=== PATIENT | female | born 1960 | race Caucasian/White ===

== ENCOUNTER 2018-06-27 11:46 | Inpatient (IN) | payer BC, OTHER ==
[~2018-06-27] VITALS: Ht 165.1 cm; Wt 77.4 kg
[2018-06-27] MEDS ORDERED: metroNIDAZOLE 500MG/100ML 100 ML IV ONE (13:45)
[2018-06-27] MEDS ORDERED: SODIUM CHLORIDE 0.9% 1,000 ML IV ONE (13:57)
[2018-06-27 14:38] LABS: Basophils # (auto) 0 uL; Eosinophils # (auto) 0 uL; Hematocrit 40.6 % (36.0-46.0); Hemoglobin 13.6 g/dL (12.2-16.2); Lymphocytes # (auto) 0.5 uL; Lymphocytes % (auto) 10.6 % (10.0-50.0); Mean Corpuscular Hemoglobin 29.6 pg (28.0-32.0); Mean Corpuscular Hgb Conc. 33.5 g/dL (32.0-36.0); Mean Corpuscular Volume 88.3 fL (80.0-100.0); Monocytes # (auto) 0.1 uL; Monocytes % (auto) 2.9 % (0.0-12.0); Neutrophils # (auto) 3.9 uL; Neutrophils % (auto) 86.5 % (37.0-80.0); Nucleated Red Blood Cells % 0.1 %; Platelet Count (auto) 180 10^3/uL (140-450); Red Blood Cells 4.59 10^6/uL (4.0-5.20); Red Cell Distribution Width 13.4 % (11.8-14.3); White Blood Cell 4.5 10^3/uL (4.4-10.8)
[2018-06-27 14:58] LABS: Albumin 3.7 g/dL (3.4-5.0); BUN/Creatinine Ratio 18.5; Calcium 9.7 mg/dL (8.5-10.1); Potassium 3.6 mmol/L (3.5-5.1)
[2018-06-27 15:01] LABS: Total Protein 7.5 g/dL (6.4-8.2)
[2018-06-27] MEDS ORDERED: PANTOPRAZOLE 40 MG/10 ML VIAL IV ONE (18:30)
[2018-06-27] MEDS ORDERED: MORPHINE SULFATE 4 MG/ML SYR/VIAL IV PRN ×3 (18:30)
[2018-06-27] MEDS ORDERED: LORazepam 2MG/ML-1ML VIAL IV PRN (18:30)
[2018-06-27] MEDS ORDERED: NITROGLYCERIN 0.4 MG SL TAB SL PRN (18:30)
[2018-06-27] MEDS ORDERED: IOHEXOL 300 MG/ML 100ML BOTTLE IJ ONE (18:47)
[2018-06-27 18:55] LABS: CRP High Sensitivity 0.06 mg/dL (< 0.3)
[2018-06-27] MEDS ORDERED: ENOXAPARIN SOD 40 MG/0.4 ML SYRINGE SC SCH (19:20)
[2018-06-27] MEDS: metroNIDAZOLE 500MG/100ML 100 ML IV SCH (19:20)
[2018-06-27] MEDS: SODIUM CHLORIDE 0.9% 1,000 ML IV SCH (19:30)
[2018-06-27 19:55] VITALS: BP_SYST 141; BP_DIAS 64; BP_DIAS 69
--- NOTE | 2018-06-27 19:55 | NUR ---
Telemetry admit from ER HENRY BRIGGS admitted to Telemetry unit after no SBAR received, attempt by ER staff noted. Patient oriented to BRANDON SOW, RN primary RN, unit, room, bed, and unit policies regarding patient care and visiting hours. Patient now on continuous telemetry monitoring, tele box # 21 and telemetry reading on arrival to unit is sinus rhythm at 84 beats per minute. Patient weighed by bedscale and encouraged to call if they need something. All questions and concerns addressed, patient verbalized understanding. Family at bedside on admission. Bed in lowest locked position, side rails up x2, call light within reach. Will continue to monitor every hour and as needed.
[2018-06-27 20:10] LABS: INR 0.93 (0.9-1.15); Partial Thromboplastin Time 24.7 sec (23.78-33.04)
[2018-06-27 20:51] LABS: Urine Bacteria NONE SEEN /hpf (None Seen); Urine Blood Negative /uL (Negative); Urine Mucus FEW (None Seen); Urine Specific Gravity 1.036 (1.001-1.035); Urine WBC 4 /hpf (0 - 5)
[2018-06-28] MEDS: metroNIDAZOLE 500MG/100ML 100 ML IV SCH ×4 (00:11→17:31)
[2018-06-28] MEDS: cefTRIAXone 1GM/50ML D5W 50 ML IV ONE ×2 (00:12→01:06)
[2018-06-28] MEDS: SODIUM CHLORIDE 0.9% 1,000 ML IV SCH ×3 (02:50→18:32)
[2018-06-28] MEDS ORDERED: OXYB5TAB24 PO (03:08)
[2018-06-28] MEDS ORDERED: LEVO150T10 PO (03:08)
[2018-06-28] MEDS ORDERED: PANT40TA2 PO (03:08)
[2018-06-28 05:01] VITALS: BP 107/66
[2018-06-28 06:07] LABS: Basophils # (auto) 0 uL; Basophils % (auto) 0.2 % (0.0-2.0); Eosinophils # (auto) 0 uL; Eosinophils % (auto) 0.3 % (0.0-7.0); Hematocrit 35.4 % (36.0-46.0); Hemoglobin 12.2 g/dL (12.2-16.2); Lymphocytes # (auto) 1.6 uL; Lymphocytes % (auto) 39.8 % (10.0-50.0); Mean Corpuscular Hemoglobin 30.4 pg (28.0-32.0); Mean Corpuscular Hgb Conc. 34.5 g/dL (32.0-36.0); Mean Corpuscular Volume 88.3 fL (80.0-100.0); Monocytes # (auto) 0.3 uL; Monocytes % (auto) 8.1 % (0.0-12.0); Neutrophils # (auto) 2.1 uL; Neutrophils % (auto) 51.6 % (37.0-80.0); Nucleated Red Blood Cells % 0.1 %; Platelet Count (auto) 157 10^3/uL (140-450); Red Blood Cells 4.01 10^6/uL (4.0-5.20); Red Cell Distribution Width 13.8 % (11.8-14.3); White Blood Cell 4.1 10^3/uL (4.4-10.8)
[2018-06-28 06:14] LABS: Amylase 35 U/L (25-115); Lipase 89 U/L (73-393)
[2018-06-28 06:17] LABS: Cholesterol 153 mg/dL (< 200); HDL Cholesterol 70 mg/dL (40-59); LDL Cholesterol 72 mg/dL (< 100); Triglycerides 58 mg/dL (< 150)
[2018-06-28 06:18] LABS: Potassium 3.5 mmol/L (3.5-5.1)
[2018-06-28 06:25] LABS: Albumin 3.2 g/dL (3.4-5.0); BUN/Creatinine Ratio 15.5; Bilirubin, Total 2.6 mg/dL (0.2-1.0); Calcium 8.7 mg/dL (8.5-10.1); Total Protein 6.1 g/dL (6.4-8.2)
--- NOTE | 2018-06-28 07:00 | NUR ---
Closing Note Patient sitting up in bed, awake and alert. No s/s of distress. Care endorsed to dayshift RN.
--- NOTE | 2018-06-28 08:30 | NUR ---
Opening Shift Note Assumed care of patient, awake and alert. No S/S of distress/SOB or pain. Instructed on POC and to call for assist PRN, will continue to monitor for changes Q1hr and PRN.
[2018-06-28] MEDS: cefTRIAXone 1GM/50ML D5W 50 ML IV SCH (09:26)
[2018-06-28] MEDS: PANTOPRAZOLE 40 MG/10 ML VIAL IV SCH (09:26)
[2018-06-28 09:36] VITALS: BP 118/60
[2018-06-28] MEDS ORDERED: POTASSIUM CHL 20 Meq TABLET PO ONE (11:30)
--- NOTE | 2018-06-28 11:30 | NUR ---
Dr. Mcintyre and Dr. Garcia at bedside discuss with patient, will do ERCP tomorrow morning and NPO AMN except medications.
[2018-06-28] MEDS ORDERED: hydrALAZINE HCL 25 MG TAB PO PRN (11:45)
[2018-06-28 13:00] VITALS: BP 127/76
[2018-06-28 17:53] VITALS: BP 130/71
--- NOTE | 2018-06-28 19:10 | NUR ---
Opening Note Received change of shift report from day shift RN. Patient is awake, alert and oriented x4. No signs or symptoms of distress noted at this time. Patient denies pain at this time. Reviewed plan of care with patient, patient verbalized understanding. Patient is to have ERCP tomorrow morning and is to be NPO after midnight. Bed in low and locked position, call light within reach. Will continue to monitor Q1 hour and PRN.
[2018-06-28 22:00] VITALS: BP 118/71
--- NOTE | 2018-06-29 00:28 | NUR ---
Patient complains of nausea Spoke with YASMANI Ponce. New orders received for PRN Zofran. Will administer per orders
[2018-06-29] MEDS ORDERED: ONDANSETRON HCL 4 MG/2 ML VIAL IV PRN (00:30)
[2018-06-29] MEDS: metroNIDAZOLE 500MG/100ML 100 ML IV SCH ×3 (00:48→11:19)
[2018-06-29] MEDS: SODIUM CHLORIDE 0.9% 1,000 ML IV SCH ×2 (02:44→10:30)
[2018-06-29 05:00] VITALS: BP 130/66
[2018-06-29 06:04] LABS: Basophils # (auto) 0 uL; Basophils % (auto) 0.3 % (0.0-2.0); Eosinophils # (auto) 0 uL; Eosinophils % (auto) 1.1 % (0.0-7.0); Hematocrit 34.7 % (36.0-46.0); Hemoglobin 11.8 g/dL (12.2-16.2); Lymphocytes # (auto) 1.3 uL; Lymphocytes % (auto) 49.8 % (10.0-50.0); Mean Corpuscular Hemoglobin 30.2 pg (28.0-32.0); Mean Corpuscular Hgb Conc. 34.1 g/dL (32.0-36.0); Mean Corpuscular Volume 88.5 fL (80.0-100.0); Monocytes # (auto) 0.2 uL; Monocytes % (auto) 8.8 % (0.0-12.0); Platelet Count (auto) 140 10^3/uL (140-450); Red Blood Cells 3.92 10^6/uL (4.0-5.20); Red Cell Distribution Width 13.5 % (11.8-14.3); White Blood Cell 2.6 10^3/uL (4.4-10.8)
[2018-06-29 06:20] LABS: Albumin 3.1 g/dL (3.4-5.0); BUN/Creatinine Ratio 12.5; Calcium 8.8 mg/dL (8.5-10.1); Potassium 4.1 mmol/L (3.5-5.1)
[2018-06-29 06:23] LABS: Bilirubin, Total 0.9 mg/dL (0.2-1.0); Total Protein 5.9 g/dL (6.4-8.2)
--- NOTE | 2018-06-29 07:15 | NUR ---
Closing Note Report given to day shift RN. Patient is awake, alert and oriented x4. No signs or symptoms of distress noted at this time.
--- NOTE | 2018-06-29 07:50 | NUR ---
Opening Shift Note Assumed care of patient, awake and alert, oriented x 4 and verbally responsive. Respiratory even and unlabored. No S/S of distress/SOB or pain. Skin is warm and dry to touch. Continue NPO, no s/s of hyperglycemia or hypoglycemia noted. Instructed on POC and to call for assist PRN, will continue to monitor for changes Q1hr and PRN.
--- NOTE | 2018-06-29 08:00 | NUR ---
Patient off unit to OR.
[2018-06-29] MEDS ORDERED: MIDAZOLAM HCL 1MG/1ML-2 ML VIAL ONE (08:46)
[2018-06-29] MEDS ORDERED: fentaNYL CITRATE 100 MCG/2 ML VL ONE (08:46)
[2018-06-29] MEDS ORDERED: MEPERIDINE HCL (50 MG/ML) 1 ML VIAL ONE (08:46)
[2018-06-29] MEDS ORDERED: SUCCINYLCHOLINE CHLORIDE 20 MG/ML 10ML VIAL IV ONE (08:51)
[2018-06-29 09:00] VITALS: BP 122/65
[2018-06-29] MEDS ORDERED: DEXAMETHASONE SOD PHOS 10MG/1ML VIAL INJ ONE (09:16)
[2018-06-29] MEDS ORDERED: PROPOFOL 10 MG/ML 20 ML IV ONE (09:16)
[2018-06-29] MEDS ORDERED: ONDANSETRON HCL 4 MG/2 ML VIAL ONE (09:17)
[2018-06-29] MEDS ORDERED: ONDANSETRON HCL 4 MG/2 ML VIAL IV ONE (09:45)
[2018-06-29] MEDS ORDERED: HYDROmorphone HCL 2 MG/ML VL IV PRN (09:45)
[2018-06-29] MEDS ORDERED: LABETALOL HCL 5 MG/ML 4ML SYRINGE IV PRN (09:45)
[2018-06-29] MEDS ORDERED: KETOROLAC TROMETH 30 MG/ML 1ML VIAL IV ONE (09:45)
[2018-06-29] MEDS ORDERED: ePHEDrine SULFATE 50 MG/ML AMP IV PRN (09:45)
[2018-06-29] MEDS ORDERED: MIDAZOLAM HCL 1MG/1ML-2 ML VIAL IV PRN (09:45)
[2018-06-29] MEDS ORDERED: hydrALAZINE HCL 20 MG/ML VL IV PRN (09:45)
[2018-06-29] MEDS ORDERED: MORPHINE SULFATE 4 MG/ML SYR/VIAL IV PRN (09:45)
--- NOTE | 2018-06-29 09:46 | NUR ---
Per Dr. Garcia, if patient tolerated diet well, patient can go home.
[2018-06-29] MEDS ORDERED: MORPHINE SULFATE 4 MG/ML SYR/VIAL IV ONE (10:00)
[2018-06-29] MEDS ORDERED: METOCLOPRAMIDE HCL 5MG/ml INJ 2ml VIAL IV ONE (10:01)
[2018-06-29] MEDS ORDERED: METOCLOPRAMIDE HCL 5MG/ml INJ 2ml VIAL ONE (10:04)
[2018-06-29] MEDS: cefTRIAXone 1GM/50ML D5W 50 ML IV SCH (10:15)
[2018-06-29] MEDS: PANTOPRAZOLE 40 MG/10 ML VIAL IV SCH (10:15)
--- NOTE | 2018-06-29 10:21 | NUR ---
Patient back from OR, no respiratory distress noted.
[2018-06-29 13:00] VITALS: BP 117/60
[2018-06-29 13:08] VITALS: BP 117/60
--- NOTE | 2018-06-29 15:06 | NUR ---
Discharge instructions given as ordered. Encourage to follow up with PMD (Follow up with Dr. Hurtado in 2-3 weeks Address : [address], [place] [address] Follow up with PCP WITH [facility] # [phone] Address [place], [place]. ) as instructed. All questions and concerns addressed. Patient verbalized understanding. Medication reconciliation form completed and copy given to patient. IV removed with catheter intact, pressure dressing applied. Telemetry unit returned to [facility]. Patient taken to vehicle via wheelchair with all personal belongings, accompanied by staff and family member. No distress noted at time of departure.
[2018-06-30 10:26] LABS: Hepatitis B Surface Antibody Negative
[2018-06-30 21:30] LABS: Hepatitis B Surface Antigen Negative (Negative)
[2018-06-30 21:31] LABS: Hepatitis C Antibody Negative (Negative)
[2018-06-30 21:32] LABS: Hepatitis B Core Total AB Negative
== END 2018-06-29 17:28 | disposition home or self-care (01) | DRG 444 ==
LOC: ER 11:53 → TELE 18:34 → TELE-WESTW 19:55
PROVIDERS: ADMIT Internal Medicine; ATTEND Internal Medicine
PROC: BF101ZZ Fluoroscopy of Bile Ducts using Low Osmolar Contrast (ICD-10-PCS; 2018-06-29)
PROC: 0FC98ZZ Extirpation of Matter from Common Bile Duct, Via Natural or Artificial Opening Endoscopic (ICD-10-PCS; principal; 2018-06-29 09:35)
DX: K80.50 Calculus of bile duct without cholangitis or cholecystitis without obstruction (principal); K85.90 Acute pancreatitis without necrosis or infection, unspecified; K52.9 Noninfective gastroenteritis and colitis, unspecified; K57.90 Diverticulosis of intestine, part unspecified, without perforation or abscess without bleeding; Z90.49 Acquired absence of other specified parts of digestive tract; Z87.440 Personal history of urinary (tract) infections; I70.90 Unspecified atherosclerosis
CPT/HCPCS: 36415; 71045; 74018; 74176; 74177; 74181; 76000; 76705; 80053; 80061; 81001; 82150; 82378; 83605; 83690; 83735; 85025; 85610; 85652; 85730; 86141; 86704; 86706; 86708; 86803; 86850; 86870; 86900; 86901; 87040; 87340; 93005; 96374; A6257; C9113; G0378; J0330; J0696; J1100; J2250; J2405; J2704; J3490

== ENCOUNTER 2023-12-04 16:38 | Emergency (ER) | payer BC ==
[~2023-12-04] VITALS: Ht 165.1 cm; Wt 67.6 kg
[~2023-12-04 16:38] MED LIST: LEVO150T10 PO; OXYB5TAB24 PO; PANT40TA2 PO
[2023-12-04 17:48] LABS: Basophils # (auto) 0 10 ^3/uL (0-0.2); Basophils % (auto) 0.7 % (0.0-2.0); Eosinophils # (auto) 0.1 10 ^3/uL (0-0.8); Eosinophils % (auto) 2.2 % (0.0-7.0); Hematocrit 36.8 % (36.0-46.0); Hemoglobin 12.5 g/dL (12.2-16.2); Lymphocytes % (auto) 27.1 % (10.0-50.0); Mean Corpuscular Hemoglobin 30.7 pg (28.0-32.0); Mean Corpuscular Volume 90.3 fL (80.0-100.0); Monocytes # (auto) 0.3 10 ^3/uL (0-1.3); Monocytes % (auto) 7.7 % (0.0-12.0); Neutrophils # (auto) 2.3 10 ^3/uL (1.6-8.6); Neutrophils % (auto) 62.3 % (37.0-80.0); Nucleated Red Blood Cells % 0.1 %; Red Blood Cells 4.08 10^6/uL (4.0-5.20); Red Cell Distribution Width 13.9 % (11.8-14.3); White Blood Cell 3.7 10^3/uL (4.4-10.8)
[2023-12-04 18:08] LABS: Albumin 4.3 g/dL (3.2-4.8); Alkaline Phosphatase 86 U/L (46-116); Aspartate Aminotransferase 15 U/L (13-40); BUN/Creatinine Ratio 12.6 (10.0-20.0); Blood Urea Nitrogen 11 mg/dL (9-23); Calcium 9.8 mg/dL (8.7-10.4); Carbon Dioxide 25 mmol/L (20-30); Glucose 98 mg/dL (74-106)
[2023-12-04 18:09] LABS: Bilirubin, Total 0.3 mg/dL (0.2-1.0); Total Protein 6.8 g/dL (5.7-8.2)
[2023-12-04] MEDS ORDERED: ALBUTEROL SULF 2.5 MG/0.5ML(0.5%) NEB SOLN NEB ONE (18:30)
[2023-12-04 18:46] LABS: Alanine Aminotransferase < 9 U/L (7-40)
[2023-12-04 18:51] LABS: Anion Gap 7 (5-15); Chloride 106 mmol/L (98-107); Potassium 3.8 mmol/L (3.5-5.1); Sodium 138 mmol/L (136-145)
[2023-12-04] MEDS: predniSONE 20 MG TAB PO ONE (18:52)
[2023-12-04] MEDS: AZITHROMYCIN 250 MG TAB PO ONE (18:52)
[2023-12-04] MEDS ORDERED: ALBU0.084 IN (19:48)
[2023-12-04] MEDS ORDERED: PRED20TA2 PO (19:48)
[2023-12-04] MEDS ORDERED: AZIT-185 PO (19:49)
[2023-12-04 20:00] VITALS: BP 115/66; PULSE 68; RESP 13; TEMP 98.6; O2SAT 96
== END 2023-12-04 20:27 | disposition home or self-care (01) ==
LOC: ER 16:38
DX: J40 Bronchitis, not specified as acute or chronic (principal); Z90.49 Acquired absence of other specified parts of digestive tract
CPT/HCPCS: 36415; 71045; 80053; 84484; 85025; 93005; 99285; J7512